=== PATIENT | female | born 2005 | race Caucasian/White ===

== ENCOUNTER 2023-12-02 12:01 | Emergency (ER) | payer OTHER, SELFPAY ==
[2023-12-02] VITALS (9 sets, daily range): BP systolic 133–156; BP diastolic 93–101; PULSE 92–104; RESP 16–18; TEMP 37.3; O2SAT 93–98; BMI 36.8
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
[2023-12-02] MEDS: ALBUTEROL 2.5 MG/3 ML NEB (ADULT) INH (13:20)
[2023-12-02 13:34] LABS: COVID-19 CEPHEID 4-PLEX PCR Negative (Negative); Influenza A - CEPHEID Flu A NEGATIVE (NEGATIVE); Influenza B - CEPHEID Flu B NEGATIVE (NEGATIVE); Respiratory Syncytial Virus Negative (Negative)
[2023-12-02] MEDS: ALBUTEROL/IPRATROPIUM 3 ML AMPUL 6 ML INH (14:09)
--- NOTE | 2023-12-02 14:56 | PC.NURSE ---
First time meeting pt is at time of d/c, refer to Dr. Groves note for assessment.
== END 2023-12-02 14:57 | disposition home or self-care (01) ==
PROVIDERS: Emergency Provider Emergency Medicine
DX: R06.02 Shortness of breath (principal)
CPT/HCPCS: 0241U; 71046; 94640; 99283; J7613